=== PATIENT | male | born 1985 | race Caucasian/White ===

== ENCOUNTER → 2024-10-15 11:13 | Outpatient (REF) | payer BC, SELFPAY | LOC: HWRAD 11:13 | PROVIDERS: ATTENDING PHYSICIAN Family Medicine | DX: R06.02 Shortness of breath (principal) | CPT/HCPCS: 71046 ==

== ENCOUNTER → 2024-10-28 15:01 | Outpatient (REF) | payer BC, SELFPAY | LOC: HWRAD 15:01 | PROVIDERS: ATTENDING PHYSICIAN Nurse Practitioner Family | DX: M25.572 Pain in left ankle and joints of left foot (principal) | CPT/HCPCS: 73610 ==

== ENCOUNTER → 2024-11-25 10:10 | Outpatient (REF) | payer BC, SELFPAY | LOC: HWRAD 10:10 | PROVIDERS: ATTENDING PHYSICIAN Nurse Practitioner Family | DX: M54.2 Cervicalgia (principal) | CPT/HCPCS: 72050 ==

== ENCOUNTER → 2025-03-01 11:10 | Outpatient (REF) | payer BC, SELFPAY | LOC: HWRAD 11:10 | PROVIDERS: ATTENDING PHYSICIAN Nurse Practitioner Family | DX: M79.631 Pain in right forearm (principal) | CPT/HCPCS: 73090 ==